=== PATIENT | male | born 1955 | race Caucasian/White ===

== ENCOUNTER 2016-07-08 11:53 | Emergency (ER) ==
[2016-07-08] MEDS ORDERED: ZOFRAN ODT PO ONE (12:18)
[2016-07-08] MEDS ORDERED: NORCO-7.5 PO ONE (12:18)
--- NOTE | 2016-07-08 13:22 | PROVIDER DOCUMENTATION ---
HPI-Musculoskeletal Pain/Inj - GENERAL Source: patient - HX OF PRESENT ILLNESS-MUSKULOSKELTAL Quality of Pain: reports: aching Severity in ED: moderate Onset/Duration: last night Timing: still present, intermittent Modifying Factors: improves with: nothing Any recent injury?: Yes (fall ) Locality of Occurance: Home Similar Symptoms Previously?: Yes Recently seen or treated by another doctor?: No - FALL INJURY Location of Pain/Injury: reports: feet (bilateral) Pain Radiation: reports: no radiation Reason for Fall: reports: unknown Symptoms prior to fall:: reports: none Loss of Consciousness: no loss of consciousness Injury Associated Symptoms: reports: unable to bear weight (bilateral), weakness (bilateral feet), trouble walking - LOWER EXTREMITY PAIN/INJURY Lower Extremities Pain: foot: bilateral (pain) Context / Method of Injury: reports: fell Associated Symptoms: reports: weakness in legs/feet (bilateral feet). denies: loss of bladder control, loss of bowel control, lower back pain, muscle spasms, numbness in legs/feet, sensory/motor loss, tingling in legs/feet <Christi Baires - Last Filed: 07/08/16 14:04> <Rafael Ward - Last Filed: 07/08/16 14:09> - GENERAL Chief Complaint: Fall Stated Complaint: FALL Time Seen by Provider: 07/08/16 12:49 - HX OF PRESENT ILLNESS-MUSKULOSKELTAL Nature of Presenting Problem: Pt is 61 y/o M presents to the ED with bilateral feet pain. Pt states fall off a roof last night. Pt states R foot pain is worse than L. Pt denies numbness or tingling in bilateral legs. Pt denies bowel and bladder incont. (Christi Baires) Review of Systems - Adult - REVIEW OF SYSTEMS - ADULT Constitutional: denies: chills, fever Eyes: denies: blurred vision, double vision Ears, Nose, Mouth & Throat: denies: ear pain, nose pain, throat pain Cardiovascular: denies: chest pain, heart murmur, irregular heart rate Respiratory: denies: cough, shortness of breath, wheezing Gastrointestinal: denies: abdominal pain, diarrhea, nausea, vomiting Genitourinary: denies: dysuria, hematuria Musculoskeletal: reports: other (bilateral feet pain). denies: bone pain, joint pain, neck pain Integumentary: denies: hives, itching Neurological: denies: dizziness/vertigo, headache/migraines Psychiatric: denies: anxiety, depression Endocrine: reports: no symptoms reported Hematologic/Lymphatic: reports: no symptoms reported Allergic/Immunologic: reports: no symptoms reported All Other Systems: Reviewed and Negative <Kami Bairesomi - Last Filed: 07/08/16 14:04> Past History - Adult - PAST MEDICAL HISTORY-ADULT Review of Records: reports: Nursing Assessment Review, Medications Reviewed, Social history reviewed & non-contributory. Major Childhood Illnesses: reports: denies history Cardiovascular: reports: HTN Respiratory: reports: denies history Gastrointestinal: reports: denies history Obstetrical/Gynecological: reports: denies history Genitourinary: reports: denies history Musculoskeletal: reports: denies history Neurological: reports: denies history Psychiatric: reports: depression Endocrine/Immune: reports: denies history Other Conditions: reports: denies history - PRIOR SURGERIES/PROCEDURES Surgical/Procedure History: reports: none - PRIOR HOSPITALIZATIONS Prior Hospitalizations: reports: none - IMMUNIZATION STATUS Childhood Immunizations: See Nurse Assessment Flu Vaccine: See Nurse Assessment - FAMILY HISTORY Family History: reviewed, not pertinent - SOCIAL HISTORY Smoking: denies Substance Use: denies Living Situation: family <Kami Bairesomi - Last Filed: 07/08/16 14:04> Physical Exam-Injury Related - Physical Exam-Injury Related Initial Vital Signs Reviewed: Yes General Appearance: appears well, alert, mild distress Eyes: PERRL/EOMI, pink conjunctivae, fundi clear, no AV nicking Head, Ears, Nose, Mouth & Throat: normocephalic/atraumatic, moist mucous membranes, normal ENT inspection, TMs normal, pharynx normal Neck: non-tender, full range of motion, supple, normal inspection Respiratory: chest non-tender, lungs clear, normal breath sounds, no pleuratic chest pain, no respiratory distress, no accessory muscle use Cardiovascular: normal peripheral pulses, regular rate, rhythm, no edema, no gallop, no JVD, no murmur Abdominal Exam: normal bowel sounds, non tender, soft, no organomegaly, no pulsatile mass Lymphatic: no adenopathy Back Exam: normal inspection, no CVA tenderness, no vertebral tenderness Extremity: erythema (R foot), pedal edema (bilateral), tenderness (bilateral feet) Integumentary: normal color, warm/dry, ecchymosis (bilateral feet), erythema (R foot) Neurologic: grossly normal Psych/Mental Status: normal mood/affect, oriented x 3 <Christi Baires - Last Filed: 07/08/16 14:04> Progress - XRAY 1 XRAY: Bilateral XRAY Study: Lumbar Spine Impression: Normal XRAY Interpretation: no fracture 2 XRAY: Bilateral XRAY Study: Ankle Impression: Normal XRAY Interpretation: no fractures for bilateral ankles 3 XRAY: Bilateral XRAY Study: Foot Impression: Normal XRAY Interpretation: no fractures for bilateral feet <Christi Baires - Last Filed: 07/08/16 14:04> <Rafael Ward - Last Filed: 07/08/16 14:09> - PLAN OF CARE/RESULTS Progress/Plan/Lab Results: Orders Category Date Time Status ANKLE COMPLETE LEFT [RAD] Stat Exams 07/08/16 12:17 Ordered ANKLE COMPLETE RIGHT [RAD] Stat Exams 07/08/16 12:17 Ordered FOOT COMPLETE LEFT [RAD] Stat Exams 07/08/16 12:17 Ordered FOOT COMPLETE RIGHT [RAD] Stat Exams 07/08/16 12:17 Ordered LUMBAR SPINE [RAD] Stat Exams 07/08/16 12:17 Ordered Hydrocodone/APAP 7.5 mg/325 mg [Latham-7.5] Med 07/08/16 12:18 Discontinued 1 each PO NOW ONE Ondansetron Odt [Zofran Odt] Med 07/08/16 12:18 Discontinued 4 mg PO NOW ONE Vital Signs - 24 hr 07/08/16 12:05 Temperature 98.3 F Pulse Rate 99 H Respiratory 18 Rate Blood Pressure 123/088 O2 Sat by Pulse 94 L Oximetry (Christi Baires) Departure <Christi Baires - Last Filed: 07/08/16 14:04> - Departure Time of Disposition Order: 14:07 Certified Medical Emergency: Emergent <Rafael Ward - Last Filed: 07/08/16 14:09> - Departure DIAGNOSIS: Injury of foot Qualifiers: Encounter type: initial encounter Laterality: unspecified laterality Qualified Code(s): S99.929A - Unspecified injury of unspecified foot, initial encounter Fall Qualifiers: Encounter type: initial encounter Qualified Code(s): W19.XXXA - Unspecified fall, initial encounter Disposition: HOME 01 Condition: Good Additional Instructions: Take medication as prescribed. As we discussed: Rest, ice and elevate your feet. Follow up with an orthopedist. ED Follow Up Instructions: You have been treated by a care provider in the Emergency Department. These instructions are being provided to you so you can have an understanding of how to care for yourself upon discharge. Upon discharge from the Emergency Department, you are responsible for making arrangements for follow-up care by a physician of your choice. Take all prescribed medications as directed. Return to the Emergency Department immediately for any new or worsening symptoms. You may call the Physician Referral phone number at [phone] to obtain a list of Physicians who are taking new patients. Prescriptions: Meloxicam [Mobic] 7.5 mg PO DAILY PRN PRN #15 tablet PRN Reason: Pain Hydrocodone/APAP 7.5 mg/325 mg [Latham-7.5] 1 each PO Q6H PRN PRN #12 tablet PRN Reason: Pain Ondansetron HCl [Zofran] 4 mg PO Q4H PRN PRN #20 tablet PRN Reason: Nausea Referrals: None,PCP [Primary Care Provider] - Yuriy Chaves MD [STAFF PHYSICIAN] - Attestation - Scribe Verification/Attestation Scribe:: Christi Baires Acting as Scribe for:: Rafael Ward Scribe documention review:: This chart was documented by a scribe and accurately reflects the service the provider performed and the decisions made by the provider. <Christi Baires - Last Filed: 07/08/16 14:04> - Physician/ [facility] Attestation Patient care was provided by Advanced Practice Provider:: Yes Advanced Practice Provider:: Rafael Ward Advanced Practice Provider documentation review:: The Mid-level provider documentation, treatment plan and medical decision making was reviewed by the physician who agrees with all treatment and medical decision making by the [facility]. <Rafael Ward - Last Filed: 07/08/16 14:09> Physician Attestation
[2016-07-08 14:21] VITALS: BP 135/92
--- NOTE | 2016-07-08 14:48 | Diag Imaging Result Document ---
PROCEDURE NAME: ANKLE COMPLETE RIGHT - 07/08/2016 RIGHT ANKLE THREE VIEWS: FINDINGS: No fracture. No dislocation. There is lateral soft tissue swelling. IMPRESSION: No acute bony injury.
--- NOTE | 2016-07-08 14:49 | Diag Imaging Result Document ---
PROCEDURE NAME: ANKLE COMPLETE LEFT - 07/08/2016 LEFT ANKLE, THREE VIEWS: FINDINGS: No fracture. No dislocation. There is lateral soft tissue swelling. IMPRESSION: No acute bony injury.
--- NOTE | 2016-07-08 14:50 | Diag Imaging Result Document ---
PROCEDURE NAME: LUMBAR SPINE - 07/08/2016 LUMBAR SPINE AP AND LATERAL WITH OBLIQUES, SIX VIEWS: FINDINGS: There is good alignment to the lumbar spine. No compressed vertebra. No subluxation. Degenerative bone spurring is found throughout the lumbar spine. IMPRESSION: No acute bony injury.
--- NOTE | 2016-07-08 14:52 | Diag Imaging Result Document ---
PROCEDURE NAME: FOOT COMPLETE RIGHT - 07/08/2016 RIGHT FOOT THREE VIEWS: FINDINGS: No fracture. No dislocation. There are longstanding arthritic changes with joint space narrowing to the distal interphalangeal joint of the great toe and to the first metatarsophalangeal joint. There is a tiny calcaneal bone spur. IMPRESSION: No acute bony injury.
--- NOTE | 2016-07-08 14:53 | Diag Imaging Result Document ---
PROCEDURE NAME: FOOT COMPLETE LEFT - 07/08/2016 LEFT FOOT THREE VIEWS: FINDINGS: There are old healed fractures to the midshaft of the second and third metatarsals. No acute fracture. No dislocation. There is a small calcaneal bone spur. IMPRESSION: No acute bony injury.
== END 2016-07-08 14:31 | disposition home or self-care (01) ==
LOC: P.ED 11:53
DX: S99.922A Unspecified injury of left foot, initial encounter (principal); S99.921A Unspecified injury of right foot, initial encounter; M79.672 Pain in left foot; M79.671 Pain in right foot; W13.2XXA Fall from, out of or through roof, initial encounter; I10 Essential (primary) hypertension; Z79.899 Other long term (current) drug therapy
CPT/HCPCS: 72110; 99283